=== PATIENT | female | born 1960 | race Caucasian/White ===

== ENCOUNTER → 2017-10-15 | Outpatient (CLI) | payer OTHER ==
[~2017-10-15] MED LIST: ALEVE220 MG PO; ALLOPURINOL 10100 M1 PO; ATENOLOL 50 MG50 M1 PO; ATORVASTATIN CA40 MG PO; BAYER CHEWABLE81 MG PO; CARAFATE 1 GM TA1 G1 PO; CARDIZEM CD120 MG PO; CHILDREN'S ASPI81 M1 PO; CHLORTHALIDONE25 MG PO; FLOMAX0.4 MG PO; HYDROCHLOROTHIA25 M1 PO; HYDROCODONE-AP1 EAC6 PO; IBUPROFEN 800800 M1 PO; LASIX 20 MG TAB20 MG PO; LEVAQUIN 500 M500 M4 PO; MEDROLDOSEPACK PO; METFORMIN HCL500 MG PO; METHIMAZOLE10 MG PO; MOBIC15 MG PO; NEURONTIN 300300 M1 PO; NEXIUM 40 MG CA40 M1 PO; NEXIUM40 MG PO; ONDANSETRON HCL4 M2 PO; OXYCODONE HCL 55 MG PO; SORINE 80 MG TA80 M1 PO; TENORMIN50 MG PO; TETRACYCLINE H250 MG PO; URSODIOL300 MG PO; ZANTAC 150MG T150 MG PO; ZESTRIL10 MG PO
== END ==
LOC: M.RAD 16:47
DX: M19.012 Primary osteoarthritis, left shoulder (principal); R22.1 Localized swelling, mass and lump, neck

== ENCOUNTER → 2018-01-09 | Outpatient (CLI) | payer OTHER | LOC: M.CT 16:12 | DX: M47.26 Other spondylosis with radiculopathy, lumbar region (principal); G89.29 Other chronic pain ==

== ENCOUNTER → 2018-02-14 | Outpatient (CLI) | payer OTHER ==
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
== END ==
LOC: M.PC 02-07 03:54
DX: I10 Essential (primary) hypertension (principal); M19.90 Unspecified osteoarthritis, unspecified site; M54.5 Low back pain; E78.2 Mixed hyperlipidemia; G62.9 Polyneuropathy, unspecified; R20.0 Anesthesia of skin

== ENCOUNTER → 2019-03-28 | Outpatient (CLI) | payer OTHER | LOC: M.RAD 15:09 | DX: M19.031 Primary osteoarthritis, right wrist (principal); M76.891 Other specified enthesopathies of right lower limb, excluding foot; M25.862 Other specified joint disorders, left knee; M25.861 Other specified joint disorders, right knee; W19.XXXA Unspecified fall, initial encounter; Y93.89 Activity, other specified; Y92.89 Other specified places as the place of occurrence of the external cause; Y99.8 Other external cause status ==

== ENCOUNTER 2020-02-03 15:57 | Emergency (ER) | payer OTHER ==
[~2020-02-03] VITALS: Ht 167.6 cm; Wt 104.3 kg
[2020-02-03] MEDS ORDERED: NORCO 5-325 TA1 EAC2 PO (17:50)
[2020-02-03] MEDS ORDERED: FLEXERIL PO (17:50)
[2020-02-03 18:59] VITALS: BP 110/50
--- NOTE | 2020-02-04 10:39 | EKG ---
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 : 1960 Requested By: Gamal Mcgill Order Number: [id number] MD: Nick Rea Measurements Intervals [place] Rate: 66 P: 15 ID: [id number] QRS: 7 QRSD: 94 T: 6 QT: 444 QTc: 466 Interpretive Statements Sinus rhythm Low voltage, precordial leads Left ventricular hypertrophy Borderline T abnormalities, anterior leads Compared to ECG 04/07/2017 07:54:05 Ventricular-paced complex(es) or rhythm no longer present Electronically Signed On 02-04-2020 10:39:39 CDT by Nick Rea [email or web address] <ELECTRONICALLY SIGNED> By: Nick Rea MD, [facility] 02/04/20 1039 170 1702 Nick Rea MD, FAC /EPI
== END 2020-02-03 18:59 | disposition home or self-care (01) ==
LOC: M.ERS 15:57
DX: S16.1XXA Strain of muscle, fascia and tendon at neck level, initial encounter (principal); S29.012A Strain of muscle and tendon of back wall of thorax, initial encounter; E05.90 Thyrotoxicosis, unspecified without thyrotoxic crisis or storm; I10 Essential (primary) hypertension; K21.9 Gastro-esophageal reflux disease without esophagitis; E11.9 Type 2 diabetes mellitus without complications; G47.30 Sleep apnea, unspecified; Z88.5 Allergy status to narcotic agent; Z88.2 Allergy status to sulfonamides; Z90.710 Acquired absence of both cervix and uterus; Z88.1 Allergy status to other antibiotic agents; V89.2XXA Person injured in unspecified motor-vehicle accident, traffic, initial encounter; Y93.89 Activity, other specified; Y92.89 Other specified places as the place of occurrence of the external cause; Y99.8 Other external cause status

== ENCOUNTER → 2020-04-09 | Outpatient (CLI) | payer OTHER ==
[~2020-04-09] MED LIST changes: +FLEXERIL PO; +NORCO 5-325 TA1 EAC2 PO
== END ==
LOC: M.ULTRA 08:34
DX: K74.3 Primary biliary cirrhosis (principal); E78.00 Pure hypercholesterolemia, unspecified; E11.9 Type 2 diabetes mellitus without complications; Z78.0 Asymptomatic menopausal state

== ENCOUNTER → 2020-05-11 | Outpatient (CLI) | payer OTHER ==
[~2020-05-11] MED LIST changes: +BENTYL 20 MG TA20 M1 PO; +MACROBID 100 M100 MG PO; +ZOFRAN ODT4 MG DISSOLVE
== END ==
LOC: M.ULTRA 07:30
PROVIDERS: ATTEND Internal Medicine
DX: K76.0 Fatty (change of) liver, not elsewhere classified (principal); R19.5 Other fecal abnormalities; I87.8 Other specified disorders of veins; M47.816 Spondylosis without myelopathy or radiculopathy, lumbar region; M16.0 Bilateral primary osteoarthritis of hip; M47.815 Spondylosis without myelopathy or radiculopathy, thoracolumbar region; M41.85 Other forms of scoliosis, thoracolumbar region

== ENCOUNTER 2020-05-13 12:27 | Emergency (ER) | payer OTHER ==
[~2020-05-13] VITALS: Ht 167.6 cm; Wt 96.6 kg
[~2020-05-13 12:27] MED LIST changes: -BENTYL 20 MG TA20 M1 PO; -MACROBID 100 M100 MG PO; -ZOFRAN ODT4 MG DISSOLVE
[2020-05-13] MEDS ORDERED: MACROBID 100 M100 MG PO (12:54)
[2020-05-13 13:25] LABS: URINE BILIRUBIN NEGATIVE (Negative); URINE BLOOD NEGATIVE (Negative); URINE CLARITY CLEAR; URINE COLOR YELLOW; URINE GLUCOSE-RANDOM NEGATIVE (Negative); URINE KETONES NEGATIVE (Negative); URINE LEUKOCYTES-REFLEX NEGATIVE (Negative); URINE NITRITE-REFLEX NEGATIVE (Negative); URINE PROTEIN NEGATIVE (Negative)
[2020-05-13 13:26] LABS: ABSOLUTE BASOPHILS 0.1 thou/uL (0.0-0.2); ABSOLUTE EOSINOPHILS 0.1 thou/uL (0.0-0.7); ABSOLUTE MONOCYTES 0.6 thou/uL (0.0-1.2); ABSOLUTE NEUTROPHILS 5.7 thou/uL (1.6-8.1); BASOPHILS 1.1 %; EOSINOPHILS 1.7 %; HEMATOCRIT 43.1 % (37.0-47.0); HEMOGLOBIN 14.5 gm/dL (12.0-15.0); LYMPHOCYTES 23.1 %; MCH 28.9 pg (26.0-34.0); MCHC 33.5 g/dL (28.0-37.0); MCV 86.1 fL (80.0-100.0); MONOCYTES 7.4 %; MPV 8.6 fl. (7.2-11.1); NUCLEATED RBCS 0 /100WBC; PLATELET COUNT* 246 thou/uL (150-400); POLYS 66.7 %; RBC 5.01 mil/uL (4.20-5.00); RDW-CV 14.3 % (10.5-14.5); WBC 8.6 thou/uL (4.0-11.0)
[2020-05-13 13:48] LABS: CALCIUM 9.2 mg/dL (8.5-10.1); CREATININE 0.8 mg/dL (0.6-1.3); POTASSIUM 3.3 mmol/L (3.5-5.1)
[2020-05-13 13:52] LABS: ALBUMIN 3.5 g/dL (3.4-5.0); TOTAL BILIRUBIN 0.5 mg/dL (<0.1-1.0)
[2020-05-13] MEDS ORDERED: ZOFRAN ODT4 MG DISSOLVE (15:16)
[2020-05-13] MEDS ORDERED: BENTYL 20 MG TA20 M1 PO (15:16)
[2020-05-13 15:52] VITALS: BP 162/91
--- NOTE | 2020-05-13 17:14 | EKG ---
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 : 1960 Requested By: Sander Hopson Order Number: [id number] MD: Eric Whitfield Measurements Intervals [place] Rate: 62 P: [place]: 197 QRS: 33 QRSD: 96 T: 14 QT: 431 QTc: 438 Interpretive Statements Atrial-paced rhythm Low voltage, precordial leads Baseline wander in lead(s) II,III,aVR,aVF Compared to ECG 02/03/2020 17:02:34 Sinus rhythm no longer present Left ventricular hypertrophy no longer present T-wave abnormality no longer present Electronically Signed On 05-13-2020 17:14:13 CDT by Eric Whitfield [email or web address] <ELECTRONICALLY SIGNED> By: Erinn Whitfield MD, BREN 05/13/20 1714 1328 Erinn Whitfield MD, BREN /EPI
== END 2020-05-13 15:55 | disposition home or self-care (01) ==
LOC: M.ERS 12:27
PROVIDERS: Emergency Medicine Emergency Medical Services
DX: R10.12 Left upper quadrant pain (principal); E11.9 Type 2 diabetes mellitus without complications; Z79.899 Other long term (current) drug therapy; Z88.6 Allergy status to analgesic agent; Z88.2 Allergy status to sulfonamides; Z88.1 Allergy status to other antibiotic agents; Z90.710 Acquired absence of both cervix and uterus